=== PATIENT | male | born 1985 | race Caucasian/White ===

== ENCOUNTER 2017-03-11 19:33 | Emergency (ER) | payer OTHER ==
--- NOTE | 2017-03-11 20:05 | EDM.PDOC ---
ED HPI GENERAL MEDICAL PROBLEM - General Chief Complaint: Respiratory Problem Stated Complaint: COUGH & VOMITING Time Seen by Provider: 03/11/17 20:04 Source of Information: Reports: Patient - History of Present Illness INITIAL COMMENTS - FREE TEXT/NARRATIVE: Patient is here for evaluation of cough that started yesterday. He states that he feels quite fatigued and has some myalgias and feels warm. He states that earlier today he coughed so hard that he vomited, has had several more episodes of emesis since that time the last one being approximately 1 hour ago. He is not eating today, he has been drinking some fluids. Patient did not receive his influenza vaccine today. Generalized Pain Score (Numeric/FACES): 8 - Related Data Allergies Allergy/AdvReac Type Severity Reaction Status Date / Time No Known Allergies Allergy Verified 03/11/17 19:44 Home Meds: Home Meds Albuterol [Ventolin HFA] 1 puff INH Q6H PRN #8 gram 03/11/17 [Rx] Prednisone [IJD: predniSONE] 20 mg PO BID #10 tab 03/11/17 [Rx] ED ROS GENERAL - Review of Systems Review Of Systems: See Below Constitutional: Reports: Fever, Chills, Malaise, Weakness, Fatigue, Decreased Appetite HEENT: Denies: Rhinitis, Sinus Problem, Throat Pain Respiratory: Reports: Cough, Sputum. Denies: Shortness of Breath, Wheezing, Hemoptysis Cardiovascular: Reports: No Symptoms GI/Abdominal: Reports: Decreased Appetite, Nausea, Vomiting. Denies: Abdominal Pain, Diarrhea : Reports: No Symptoms Musculoskeletal: Reports: Muscle Pain Skin: Reports: No Symptoms Neurological: Reports: No Symptoms ED EXAM, GENERAL - Physical Exam Exam: See Below Exam Limited By: No Limitations General Appearance: Alert, WD/WN, No Apparent Distress Ears: Normal External Exam, Normal Canal, Normal TMs Nose: Normal Inspection, Normal Mucosa Throat/Mouth: Normal Inspection, Normal Oropharynx, Normal Voice Neck: Normal Inspection Respiratory/Chest: No Respiratory Distress, Wheezing (Very mild scattered wheezes bilaterally.). No: Rales, Rhonchi Cardiovascular: Regular Rate, Rhythm, No Murmur, No Rub Neurological: Alert, Oriented Psychiatric: Normal Affect, Normal Mood Skin Exam: Warm, Dry, Intact Course - Vital Signs Last Recorded V/S: Last Vital Signs Temp 99.6 F 03/11/17 19:41 Pulse 84 03/11/17 19:41 Resp 16 03/11/17 19:41 BP 116/62 03/11/17 19:41 Pulse Ox 97 03/11/17 19:41 - Orders/Labs/Meds Orders: Active Orders 24 hr Category Date Time Status Chest 2V [CR] Stat Exams 03/11/17 20:05 Taken - Re-Assessments/Exams Free Text/Narrative Re-Assessment/Exam: Occasional scattered wheezes bilaterally on auscultation, O2 97% on room air. I do not see any consolidation or effusions on x-ray, official radiologist report is pending. Influenza A was positive. Patient declines treatment with Tamiflu. Will give a short course of prednisone and albuterol inhaler for wheezing. Rest, push oral fluids. Ibuprofen as needed for fever and muscle aches. Patient is to follow-up with PCP in early next week if not significantly improved. Patient does have a young baby at home, I did advise him to discuss prophylactic treatment with patient's they're buttoner. 03/11/17 20:47 03/11/17 20:47 03/11/17 22:00 Departure - Departure Time of Disposition: 21:17 Disposition: Home, Self-Care 01 Condition: Good Clinical Impression: Influenza A - Discharge Information Prescriptions: Albuterol [Ventolin HFA] 1 puff INH Q6H PRN #8 gram PRN Reason: Wheezing Prednisone [IJD: predniSONE] 20 mg PO BID #10 tab Instructions: Influenza, Adult, [id number] Referrals: PCP,Not In Area [Primary Care Provider] - Forms: ED Department Discharge Additional Instructions: Rest, maximize oral fluids. Ibuprofen as needed for muscle aches and fever. Take prednisone twice a day for 5 days. Albuterol inhaler as needed for wheezing/bronchospasm. I recommend you discuss with your buttoner if preventative treatment is indicated for your children. If you're not significantly better by Monday I recommend that you follow-up with your PCP or certainly return to the ER if needed. - My Orders Last 24 Hours: My Active Orders 03/11/17 20:05 Chest 2V [CR] Stat - Assessment/Plan Last 24 Hours: My Active Orders 03/11/17 20:05 Chest 2V [CR] Stat
--- NOTE | 2017-03-13 07:25 | CR ---
Chest: Two views of the chest were obtained. Comparison: No prior chest x-ray. Heart size and mediastinum are normal. Lungs are clear. Old healed left clavicle fracture is seen. Bony structures show minimal degenerative endplate spurring within the mid thoracic spine. Impression: 1. Incidental findings. Nothing acute is appreciated. Diagnostic code #2
== END 2017-03-11 21:25 | disposition home or self-care (01) ==
LOC: JD.ED 19:33
DX: J10.1 Influenza due to other identified influenza virus with other respiratory manifestations (principal)
CPT/HCPCS: 71020; 71020-26; 87804; 99283; 99284